=== PATIENT | female | born 1950 | race Caucasian/White ===

== ENCOUNTER 2022-06-20 11:41 | Day surgery (SDC) | payer MEDICARE, MEDICAID ==
[~2022-06-20] VITALS: Ht 162.6 cm; Wt 78.1 kg
[2022-06-20] VITALS (8 sets, daily range): BP systolic 118–150; BP diastolic 57–80
[~2022-06-20 11:41] MED LIST: ALBU8.5H17 IH; AMLO10TA89 PO; BUPR100T15 PO; CLON-570 PO; DULO60CA65 PO; GABA600T13 PO; LANTUS SQ; LEVO100T9 PO; LISI40TA13 PO; MECL25TA3 PO; METO100T14 PO; MOME13HF11 IH; ONDA4TAB6 PO
[2022-06-20] MEDS ORDERED: normal saline 1,000 ML IV SCH (12:10)
[2022-06-20] MEDS ORDERED: LORazepam 0.5 MG tablet PO PRN (12:10)
[2022-06-20] MEDS ORDERED: diphenhydrAMINE 25mg capsule PO PRN (12:10)
[2022-06-20] MEDS ORDERED: METF-436 PO (13:00)
[2022-06-20] MEDS ORDERED: UMEC1DIS INH (13:00)
[2022-06-20] MEDS ORDERED: OMEP20CA16 PO (13:00)
[2022-06-20] MEDS ORDERED: ATOR40TA72 PO (13:00)
[2022-06-20 13:21] LABS: BASOPHILS # (AUTO) 0.1 X10'3 (0-0.2); BASOPHILS % (AUTO) 1.1 % (0-1); EOSINOPHILS # (AUTO) 0.4 X10'3 (0-0.9); EOSINOPHILS % (AUTO) 3.7 % (0-6); HEMATOCRIT 30.2 % (35.0-45.0); HEMOGLOBIN 9.6 g/dl (12.0-16.0); LYMPHOCYTES # (AUTO) 1.8 X10'3 (1.1-4.8); LYMPHOCYTES % (AUTO) 18.8 % (21-51); MEAN CORPUSCULAR HEMOGLOBIN 24.8 PG (27.0-31.0); MEAN CORPUSCULAR HGB CONC 31.8 g/dL (33.0-36.5); MEAN CORPUSCULAR VOLUME 77.9 FL (78-98); MEAN PLATELET VOLUME 8.2 FL (7.4-10.4); MONOCYTES # (AUTO) 0.8 X10'3 (0-0.9); MONOCYTES % (AUTO) 8.1 % (2-12); NEUTROPHILS # (AUTO) 6.7 X10'3 (1.8-7.7); NEUTROPHILS % (AUTO) 68.3 % (42-75); PLATELET COUNT 375 X10'3 (140-440); RED BLOOD COUNT 3.87 X10'6 (4.20-5.60); RED CELL DISTRIBUTION WIDTH 18.3 % (11.5-14.5); WHITE BLOOD COUNT 9.8 X10'3 (4.5-11.0)
[2022-06-20 13:32] LABS: ALBUMIN 3.6 G/DL (3.4-5.0); ANION GAP 10 (8-16); BLOOD UREA NITROGEN 33 MG/DL (7-18); BUN/CREATININE RATIO 21.2 (6.6-38.0); CALCIUM 9.6 MG/DL (8.5-10.1); CHLORIDE 101 MMOL/L (99-107); CREATININE 1.56 MG/DL (0.40-0.90); GLUCOSE 80 MG/DL (70-104); POTASSIUM 3.8 MMOL/L (3.5-5.1); SODIUM 138 MMOL/L (135-145); TOTAL CARBON DIOXIDE 26.8 MMOL/L (24-32); eGFR 33 ML/MIN
[2022-06-20 13:34] LABS: APTT 27 SECONDS (22-32)
[2022-06-20] MEDS ORDERED: verapamil 2.5 mg/ml inj IV ONE (15:02)
[2022-06-20] MEDS ORDERED: nitroGLYCERIN-Tridil 50MG/D5W 250 ML IV ONE (15:02)
[2022-06-20] MEDS ORDERED: midazolam 1 mg/ML 2ml injection ONE (15:03)
[2022-06-20] MEDS ORDERED: fentaNYL/PF 50MCG/1 ML 2ML syringe ONE (15:03)
[2022-06-20] MEDS ORDERED: heparin 1,000unit/ml 10ml vial 10 ML ONE (15:03)
[2022-06-20] MEDS ORDERED: iohexol 350MG/ML 100ml bottle IV ONE ×2 (15:03→16:02)
[2022-06-20] MEDS ORDERED: LIDOcaine 1% (10mg/ml) 2ml vial ONE (15:03)
[2022-06-20] MEDS ORDERED: LIDOcaine 1% 30ml preserv. free vial ONE (15:37)
[2022-06-20] MEDS ORDERED: clopidogrel 300mg tablet ONE (15:55)
[2022-06-20] MEDS ORDERED: aspirin 325mg tablet ONE (15:55)
[2022-06-20] MEDS ORDERED: ondansetron/PF 4mg/2ml inj ONE (16:18)
[2022-06-20] MEDS ORDERED: nitroGLYCERIN 0.4mg SUBLingual tab SL ONE (16:25)
[2022-06-21] MEDS ORDERED: clopidogrel 75mg tablet PO SCH (08:00)
[2022-06-21] MEDS ORDERED: aspirin 81mg, enteric-coated 1 TAB TABLET.DR PO SCH (08:00)
== END 2022-06-20 20:40 | disposition home or self-care (01) ==
LOC: SSTAY O 11:41
PROVIDERS: ATTEND Student in an Organized Health Care Education/Training Program
DX: I25.10 Atherosclerotic heart disease of native coronary artery without angina pectoris (principal); J44.9 Chronic obstructive pulmonary disease, unspecified; E11.9 Type 2 diabetes mellitus without complications; I10 Essential (primary) hypertension; I73.9 Peripheral vascular disease, unspecified; E03.9 Hypothyroidism, unspecified; E78.5 Hyperlipidemia, unspecified; Z79.01 Long term (current) use of anticoagulants; Z79.899 Other long term (current) drug therapy; Z98.890 Other specified postprocedural states
CPT/HCPCS: 36415; 80048; 85025; 85610; 85730; 93005; 93458; 99152; 99153; A6258; C1725; C1751; C1769; C1874; C1894; C9600; J1644; J2250; J2405; J3010; J3490; J7030; Q0163; Q9967; A6402